=== PATIENT | male | born 1960 | race Caucasian/White ===

== ENCOUNTER 2019-02-17 06:50 | Outpatient (CLI) | payer BC ==
--- NOTE | 2019-02-17 08:23 | ULT ---
US Abdominal History: Liver evaluation Comparison: Hepatic ultrasound 2017 Findings: Real-time grayscale, color, and spectral analysis of the abdomen was performed. Visualized portion of the aorta, pancreas, and IVC are unremarkable. Liver measures 16 cm in length. No hepatic mass. Spleen is enlarged measuring 12.3 cm in length. Gallbladder is normal. Common bile duct is normal. Portal vein is patent with antegrade flow. Right kidney measures 11.9 x 6 x 6.8 cm and the left kidney measures 11.3 x 6.7 x 5.8 cm. There are 2 simple cysts, largest measuring 3.5 cm in size. No renal mass or hydronephrosis. Impression: 1. Normal echotexture of the liver without mass. 2. Splenomegaly suggesting portal hypertension. 3. Simple cysts cysts left kidney. 4. Small volume gallbladder sludge.
--- NOTE | 2019-02-17 08:54 | ULT ---
US Carotid Doppler STANDARD History: Carotid stenosis Comparison: None. Findings: Real-time grayscale, color, and spectral analysis of the extracranial carotid and vertebral arteries was performed. Antegrade flow both vertebral arteries. No elevated peak systolic velocities within the internal alvarez tid arteries. The ICA/CCA ratios are normal. No significant plaque. Impression: No hemodynamically significant stenosis.
== END 2019-02-17 06:51 | disposition home or self-care (01) ==
LOC: BICULT 06:50
PROVIDERS: ATTEND Internal Medicine
DX: K75.81 Nonalcoholic steatohepatitis (NASH) (principal); K21.9 Gastro-esophageal reflux disease without esophagitis; R42 Dizziness and giddiness; K76.0 Fatty (change of) liver, not elsewhere classified; R16.1 Splenomegaly, not elsewhere classified; N28.1 Cyst of kidney, acquired; K82.8 Other specified diseases of gallbladder; Z86.010 Personal history of colon polyps
CPT/HCPCS: 36415; 76700; 80053; 80061; 84550; 93880; G0103

== ENCOUNTER 2021-02-26 07:32 | Outpatient (CLI) | payer BC | END 2021-02-26 07:33 | disposition home or self-care (01) | LOC: BICCT 07:32 | PROVIDERS: ATTEND Physician Assistant Medical | DX: K75.81 Nonalcoholic steatohepatitis (NASH) (principal); R10.30 Lower abdominal pain, unspecified; Z86.010 Personal history of colon polyps; N28.1 Cyst of kidney, acquired; K57.30 Diverticulosis of large intestine without perforation or abscess without bleeding; I70.0 Atherosclerosis of aorta; N40.0 Benign prostatic hyperplasia without lower urinary tract symptoms; M47.816 Spondylosis without myelopathy or radiculopathy, lumbar region; M48.061 Spinal stenosis, lumbar region without neurogenic claudication | CPT/HCPCS: 74177 ==